=== PATIENT | male | born 1990 | race Caucasian/White ===

== ENCOUNTER 2020-04-23 12:10 | Emergency (ER) | payer MEDICAID ==
[~2020-04-23] VITALS: Ht 185.4 cm; Wt 87.5 kg
[2020-04-23 12:14] VITALS: Ht 185.4 cm; Wt 87.5 kg
[2020-04-23 14:39] VITALS: BP 109/56
== END 2020-04-23 14:39 | disposition home or self-care (01) ==
LOC: ED 12:10
DX: S83.92XA Sprain of unspecified site of left knee, initial encounter (principal); M25.462 Effusion, left knee; Z98.890 Other specified postprocedural states; X58.XXXA Exposure to other specified factors, initial encounter; Y93.68 Activity, volleyball (beach) (court); Y92.89 Other specified places as the place of occurrence of the external cause; Y99.8 Other external cause status
CPT/HCPCS: Q0092